=== PATIENT | male | born 1990 | race Caucasian/White ===

== ENCOUNTER 2020-01-16 00:48 | Day surgery (SDC) | payer OTHER, SELFPAY ==
[2020-01-13 08:33] VITALS: BMI 27.1
--- NOTE | 2020-01-13 08:42 | PC.NURSE ---
INSTRUCTED TO BRING INHALER WITH HIM SO HE HAS IT IF NEEDED.
[2020-01-16 08:32] VITALS: BP 135/94; PULSE 72; RESP 18; TEMP 36.8; O2SAT 96; BMI 26.9
[2020-01-16] MEDS: LACTATED RINGERS 1,000 ML 150 ML IV CONT (08:47)
--- NOTE | 2020-01-16 08:53 | WPDANESEPPF ---
Anes - Initial Pre Proc Eval Procedure: Operation Date: 01/16/20 09:30 Proposed Procedures p Esophagogastroduodenoscopy - Ramin Rod MD Date/Time: 01/16/20 08:53 Surgeon: Ramin Rod MD Pre Op Diagnosis: acid reflux, vomiting Patient Data Age: 29 Gender: M Height: 5 ft 11 in Weight: 87.7 kg Last Vital Signs Temp 36.8 C 01/16/20 08:32 Pulse 72 01/16/20 08:32 Resp 18 01/16/20 08:32 BP 135/94 H 01/16/20 08:32 Pulse Ox 96 01/16/20 08:32 Allergies Allergy/AdvReac Type Severity Reaction Status Date / Time menthol Allergy Severe SOB Verified 01/16/20 08:30 adhesive Allergy Intermediate RASH Verified 01/16/20 08:30 aloe Allergy Intermediate HIVES Verified 01/16/20 08:30 droperidol [From Inapsine] Allergy Intermediate Muscle Verified 01/16/20 08:30 Spasms Home Medications Medication Instructions Recorded Confirmed Type albuterol sulfate [ProAir HFA] 2 puff INHALATION PRN PRN 01/13/20 01/13/20 History budesonide-formoterol [Symbicort] 2 puff INHALATION BID 01/13/20 01/13/20 History metoprolol tartrate 25 mg PO BID 01/13/20 01/13/20 History Patient hx anesthesia problems: none Family hx anesthesia problems: none PMFSH Past Medical History Medical History (Updated 01/16/20 @ 08:53 by Amadou Roberts MD) GERD (gastroesophageal reflux disease) HTN (hypertension) Anes - Eval Final PreProcedure Day of Procedure 01/16/20 08:53 Patient weight: overweight Heart: regular rate and rhythm Lungs: clear to auscultation Airway: Mallampati scale class 1 Neurological: alert and oriented Last oral intake: >/= 8 hours ASA classification: II Emergent: no Anesthetic plan: proceed Anesthesia type and monitoring: general GIVS and standard monitoring Informed Consent: The patient's anesthetic plan and its attendant risks and benefits were discussed with the patient/family/POA. Questions were solicited and answers provided to the satisfaction of the patient/family/POA.
--- NOTE | 2020-01-16 08:56 | PM.HPGS ---
History of Present Illness History of Present Illness Consent: Risks, benefits, and alternatives have been discussed and questions answered. Patient agrees to proceed with procedure. Chief complaint: acid reflux, vomiting Narrative: Danish Jenkins is a 29 year old W male referred for gastroscopy secondary to a 4-5 year history of chronic reflux disease and intermittent nausea vomiting. Patient denies any hematemesis. Denies any dysphagia. He has been on H2 antagonist without resolution of symptoms. He just started hearing to anti-reflux measures. [facility] Past Medical History Medical History (Updated 01/16/20 @ 08:57 by Ramin Rod MD) GERD (gastroesophageal reflux disease) History of kidney stones HTN (hypertension) Surgical History Surgical History (Updated 01/16/20 @ 08:58 by Ramin Rod MD) Status post laser lithotripsy of ureteral calculus Status post placement of ureteral stent Meds Home Medications and Allergies Home Medications Medication Instructions Recorded Confirmed Type albuterol sulfate [ProAir HFA] 2 puff INHALATION PRN PRN 01/13/20 01/13/20 History budesonide-formoterol [Symbicort] 2 puff INHALATION BID 01/13/20 01/13/20 History metoprolol tartrate 25 mg PO BID 01/13/20 01/13/20 History Allergies Allergy/AdvReac Type Severity Reaction Status Date / Time menthol Allergy Severe SOB Verified 01/16/20 08:30 adhesive Allergy Intermediate RASH Verified 01/16/20 08:30 aloe Allergy Intermediate HIVES Verified 01/16/20 08:30 droperidol [From Inapsine] Allergy Intermediate Muscle Verified 01/16/20 08:30 Spasms Vital Signs Vital Signs - 24 hr 01/16/20 08:32 Temperature 36.8 C Pulse Rate 72 Respiratory Rate 18 Blood Pressure 135/94 H Pulse Oximetry 96 Exam Const: Orientation/consciousness: patient oriented x3 Resp: Auscultation: clear to auscultation bilaterally Cardio: Rate: regular rate Rhythm: regular rhythm Heart sounds: no murmurs GI: GI Palp: Yes Soft to palpation, No Tenderness to palpation present (GI), Yes No hepatosplenomegaly present and No Palpable mass present Auscultation: normal bowel sounds Neuro: General: patient oriented x3 and no focal motor deficits Extrem: General: no pedal edema Assessment and Plan Additional Plan gastroscopy for evaluation of chronic gastroesophageal reflux disease intermittent nausea vomiting
[2020-01-16] MEDS: BENZOCAINE (*SP) 60 ML SPRAY CAN (HURRICAINE) 1 SPRAY MUCOUS MEM (09:41)
[2020-01-16 09:54] VITALS: BP 126/92; PULSE 68; RESP 20; O2SAT 98
[2020-01-16 10:04] VITALS: BP 120/80; PULSE 62; RESP 18; O2SAT 97
[2020-01-16 10:14] VITALS: BP 118/87; PULSE 61; RESP 20; O2SAT 95
== END 2020-01-16 10:35 | disposition home or self-care (01) ==
PROVIDERS: PCP Nurse Practitioner Family; Visit Provider Internal Medicine Gastroenterology
PROC: 0DJ08ZZ Inspection of Upper Intestinal Tract, Via Natural or Artificial Opening Endoscopic (ICD-10-PCS; CPT 43235; principal; 2020-01-16 09:30)
DX: K21.0 Gastro-esophageal reflux disease with esophagitis (principal); K29.50 Unspecified chronic gastritis without bleeding; I10 Essential (primary) hypertension
CPT/HCPCS: 43239; 87081; 88305; J2001; J2704; J7120